=== PATIENT | female | born 1975 | race Caucasian/White ===

== ENCOUNTER 2020-01-22 21:00 | Observation (INO) | payer OTHER ==
[2020-01-22] MEDS ORDERED: Sodium Chloride 0.9% 10 ML Syringe FLUSH PRN (21:14)
[2020-01-22] MEDS ORDERED: Sodium Chloride 0.9% 1,000 ML IV STA (21:14)
[2020-01-22] MEDS ORDERED: Sodium Chloride 0.9% 10 ML SDV IV PRN (21:14)
[2020-01-22] MEDS ORDERED: Sodium Chloride 0.9% 2.5 ML Syringe FLUSH PRN (21:14)
[2020-01-22] MEDS ORDERED: Iopamidol 755 Mg/ML 100 ML Bottle IVPUSH ONE (21:43)
[2020-01-22 21:46] LABS: BLOOD UREA NITROGEN,BUN 14 mg/dL (7.0-18.0); CARBON DIOXIDE,CO2 26.1 mmol/L (21.0-32.0); CHLORIDE,CL 102 mmol/L (98-107); GLUCOSE RANDOM 90 mg/dL (74-106); POTASSIUM,K 3.7 mmol/L (3.5-5.1); SODIUM,NA 137 mmol/L (136-145)
[2020-01-22] MEDS ORDERED: Acetaminophen 325 MG Tab PO ONE (22:04)
--- NOTE | 2020-01-22 22:04 | EDM.PDOC ---
ED HPI GENERAL MEDICAL PROBLEM - General Chief Complaint: Neuro Symptoms/Deficits Stated Complaint: POSSIBLE STROKE Time Seen by Provider: 01/22/20 21:08 - History of Present Illness INITIAL COMMENTS - FREE TEXT/NARRATIVE: HISTORY AND PHYSICAL: History of present illness: This is a 45-year-old female with history significant for recent gastric sleeve placement approximately 1 year ago with an approximate 100 pound weight loss within the last year, history of anxiety disorder, family history of strokes in the past, presents the ER today secondary to acute onset of paresthesias to her left upper and lower extremity that occurred while she was driving. Patient reports her last known well was at 7:30 PM. Patient reports that she pulled over and noticed that her left arm and left leg felt numb. She drove home and her gave her an aspirin and they came here to the ED for further evaluation. Patient reports that she feels like her speech is somewhat abnormal, no double vision, no blurred vision, no weakness to her upper or lower extremities, normal gait, no dizziness or vertigo, no confusion. Patient denies any recent fevers, shakes, chills, nausea, vomiting, diarrhea, dysuria, frequency, urgency, chest pain, shortness of breath. Patient denies any increased anxiety or stressors in her life. Patient denies any abdominal discomfort or chest pain. Review of systems: As per history of present illness and below otherwise all systems reviewed and negative. Past medical history: As per history of present illness and as reviewed below otherwise noncontributory. Surgical history: As per history of present illness and as reviewed below otherwise noncontributory. Social history: No reported history of drug or alcohol abuse. Family history: As per history of present illness and as reviewed below otherwise noncontributory. Physical exam: HEENT: Atraumatic, normocephalic, pupils reactive, negative for conjunctival pallor or scleral icterus, mucous membranes moist, throat clear, neck supple, nontender, trachea midline. Lungs: Clear to auscultation, breath sounds equal bilaterally, chest nontender. Heart: S1S2, regular, negative for clicks, rubs, or JVD. Abdomen: Soft, nondistended, nontender. Negative for masses or hepatosplenomegaly. Negative for costovertebral tenderness. Pelvis: Stable nontender. Genitourinary: Deferred. Rectal: Deferred. Extremities: Atraumatic, negative for cords or calf pain. Neurovascular unremarkable. Neuro: Awake, alert, oriented. Cranial nerves II through XII unremarkable. Cerebellum unremarkable. Motor unremarkable throughout. Exam nonfocal except for paresthesias to her left upper and left lower extremities. 1a) Level of consciousness: 0=alert; 1=not alert but arousable by minor stimulation; 2=not alert: requires repeated stimulation to attend or is obtunded and requires strong or painful stimulation to make movements; 3=responds only with reflex motor or autonomic effects or totally unresponsive, flaccid and areflexic SCORE 0 1b) LOC questions ("what month is it?", "how old are you?"): 0=answers both correctly; 1=answers one correctly; 2=answers neither correctly SCORE 0 1c) LOC commands (command patient to "open and close your eyes. Senior Premium Auditor and release your hand.): 0=performs both correctly; 1=performs one correctly; 2=performs neither correctly SCORE 0 2) Best gaze ("follow my finger"): 0=normal; 1=partial gaze palsy; 2=forced deviation or total gaze paresis SCORE 0 3) Visual canales (use confrontation, finger counting, or visual threat. confront upper/lower quadrants of visual field): 0=no visual loss; 1=partial hemianopsia; 2=complete hemianopsia; 3=bilateral hemianopsia SCORE 0 4) Facial palsy (by words or pantomime, encourage patient to: "Show me your teeth. Raise your eyebrows. Close your eyes."): 0=normal symmetrical movement; 1=minor paralysis (flattened nasolabial fold, asymmetry on smiling); 2=partial paralysis (lower face); 3=complete paralysis SCORE 0 5) Arm motor (alternately position patient's arms. extend each arm with palms down [90 degrees if sitting, 45 degrees if supine] - test each arm in turn and start with nonparetic arm first): 0=no drift; 1=drift (arm falls before 10 se conds); 2=some effort vs. gravity; 3=no effort vs. gravity; 4=no movement; UN (untestable)=amputation or joint fusion SCORE 0 6) Leg motor (alternately position patient's legs. extend each leg [30 degrees, always while supine] - test nonparetic leg first): 0=no drift; 1=drift (leg falls before 5 seconds); 2=some effort vs. gravity; 3= no effort vs. gravity; 4=no movement; UN=amputation or joint fusion SCORE 0 7) Limb ataxia (ask patient [eyes open] to: "touch your finger to your nose. touch your heel to your andres"): 0=absent; 1=present in one limb; 2=present in two or more limbs; UN=amputation or joint fusion SCORE 0 8) Sensory (test as many body parts as possible [arms and not hands, legs, trunk, face] for sensation using pinprick or noxious stimuli [in the obtunded or aphasic patient]): 0=normal; 1=mild to moderate sensory loss; 2=severe to total sensory loss SCORE 1 9) Best language (using pictures and a sentence list, ask patient to "describe what you see in this picture. Name the items in this picture. Read these sentences"): 0=no aphasia, 1=mild to moderate aphasia; 2=severe aphasia; 3=mute, global aphasia SCORE 0 10) Dysarthria (using a simple word list, ask patient to: "read these words" or "repeat these words"): 0=normal articulation; 1=mild to moderate dysarthria; 2=severe dysarthria; UN=intubated or other physical barrier SCORE 0 11) Extinction and inattention (sufficient information to determine these scores may have been obtained during the prior testing): 0=no abnormality; 1=visual, tactile, auditory, spatial or personal inattention; 2=profound evangelina-inattention or extinction to more than one modality SCORE 0 TOTAL NIHSS Score:1 Diagnostics: CT head: No acute intracranial abnormalities. CTA of head and neck: No evidence of proximal arterial occlusion, high-grade stenosis, aneurysm, dissection or vascular malformation. CBC, CMP within normal limits. Urine drug screen positive for marijuana otherwise negative. Patient had report ed that she currently received a marijuana card 1 month ago. Alcohol level 0 Therapeutics: Patient received aspirin prior to arrival to the ED by . At this time, patient is not a candidate for thrombolytic therapy given her NIH score of 1 with paresthesias to her left upper and lower extremities. Patient has no neurological motor deficit. Patient has no cerebellar deficit. Patient has no motor deficit patient has no speech deficits. Assessment and plan: This is a 45-year-old female who presents ER today secondary to paresthesias and numbness to her left upper and left lower extremity that started at 7:30 PM. Patient reports her last known well was 7:30 PM. Patient reports that symptoms occurred while she was driving and she reports that the symptoms are persistent here in the ED. Patient's neurological exam reveals an NIH score of 1 secondary to paresthesias in her left upper and left lower extremities. Patient has normal motor strength in her upper and lower extremities. Patient is a normal cerebellar exam. Patient's cranial nerves II to XII intact. Patient speech is normal. Patient's mentation is normal. Case discussed with Dr. Ortega who agrees to assist with observation level of care of patient. At this time, patient would not be a candidate for thrombolytic therapy secondary to her NIH score of 1 and risk-benefit assessment. Critical Care: The high probability of sudden, clinically significant deterioration in the patient's condition required the highest level of my preparedness to intervene urgently. The services I provided to this patient were to treat and/or prevent clinically significant deterioration. Services included the following: chart data review, reviewing nursing notes and/or old charts, documentation time, center lead consultant collaboration regarding findings and treatment options, medication orders and management, direct patient care, vital sign assessments and ordering, interpreting and reviewing diagnostic studies/lab tests. Aggregate critical care time includes only time during which I was engaged inwork directly related to the patient's care, as described above, whether at the bedside or elsewhere in the Emergency Department. It did not include time spent performing other reported procedures or the services of residents, students, nurses or physician assistants. Critical Care Time: 35 minutes Definitive disposition and diagnosis as appropriate pending reevaluation and review of above. - Related Data Allergies Allergy/AdvReac Type Severity Reaction Status Date / Time hydromorphone [From Dilaudid] Allergy Other Verified 01/22/20 21:21 prochlorperazine Allergy Other Verified 01/22/20 21:21 [From Compazine] promethazine [From Phenergan] Allergy Other Verified 01/22/20 21:23 Home Meds: Home Meds Levothyroxine 150 mcg PO DAILY 01/22/20 [History] PARoxetine [Paxil] 10 mg PO DAILY 01/22/20 [History] clonazePAM [Klonopin] 2 mg PO DAILY 01/22/20 [History] Past Medical History Other Gastrointestinal History: gastric sleeve Genitourinary History: Reports: Renal Calculus Other INDUSTRIAL LABORER History: Psychiatric History: Reports: Anxiety, Panic Attack - Past Surgical History GI Surgical History: Reports: Cholecystectomy Social & Family History - Family History Family Medical History: Noncontributory - Caffeine Use Caffeine Use: Reports: None - Recreational Drug Use Recreational Drug Type: Reports: Marijuana/Hashish ED ROS GENERAL - Review of Systems Review Of Systems: See Below ED EXAM, GENERAL - Physical Exam Exam: See Below Course - Vital Signs Last Recorded V/S: Last Vital Signs Temp 97.1 F 01/22/20 21:05 Pulse 71 01/22/20 21:05 Resp 18 01/22/20 21:05 BP 186/110 H 01/22/20 21:05 Pulse Ox 96 01/22/20 21:05 - Orders/Labs/Meds Orders: Active Orders 24 hr Category Date Time Status Assess Neurological Status [RC] ASDIRECTED Care 01/22/20 21:14 Active Cardiac Monitoring [RC] . DIRECTED Care 01/22/20 21:14 Active EKG Documentation Completion [RC] STAT Care 01/22/20 21:14 Active Height and Weight [RC] UPON Care 01/22/20 21:14 Active Initiate Acute Stroke Protocol [RC] STAT Care 01/22/20 21:14 Active NIH Stroke Scale [RC] ASDIRECTED Care 01/22/20 21:14 Active Nursing Bedside Swallow Screen [RC] ASDIRECTED Care 01/22/20 21:14 Active Oxygen Therapy [RC] ASDIRECTED Care 01/22/20 21:14 Active Stroke Education, General [RC] Click to Edit Care 01/22/20 21:14 Active Up With Assistance [RC] ASDIRECTED Care 01/22/20 21:14 Active Vital Signs [RC] Q15M Care 01/22/20 21:14 Active Chest 1V Frontal [CR] Stat Exams 01/22/20 21:15 Taken Sodium Chloride 0.9% [Normal Saline] Med 01/22/20 21:14 Active 10 ml IV ASDIRECTED PRN Sodium Chloride 0.9% [Normal Saline] 1,000 ml Med 01/22/20 21:14 Active IV NOW Sodium Chloride 0.9% [Saline Flush] Med 01/22/20 21:14 Active 10 ml FLUSH ASDIRECTED PRN Sodium Chloride 0.9% [Saline Flush] Med 01/22/20 21:14 Active 2.5 ml FLUSH ASDIRECTED PRN Peripheral IV Insertion Adult [OM.PC] Stat Ot 01/22/20 21:14 Ordered Peripheral IV Insertion Adult [OM.PC] Stat Ot 01/22/20 21:14 Ordered Medication Orders Sodium Chloride (Normal Saline) 1,000 mls @ 125 mls/hr IV NOW STA Stop: 01/23/20 05:13 Last Admin: 01/22/20 22:07 Dose: 125 mls/hr Documented by: MORALES Sodium Chloride (Saline Flush) 10 ml FLUSH ASDIRECTED PRN PRN Reason: Keep Vein Open Sodium Chloride (Saline Flush) 2.5 ml FLUSH ASDIRECTED PRN PRN Reason: Keep Vein Open Sodium Chloride (Normal Saline) 10 ml IV ASDIRECTED PRN PRN Reason: IV Use Labs: Laboratory Tests 01/22/20 01/22/20 01/22/20 Range/Units 21:10 21:10 21:10 WBC 11.25 H (4.0-11.0) K/uL RBC 4.09 L (4.30-5.90) M/uL Hgb 13.0 (12.0-16.0) g/dL Hct 38.6 (36.0-46.0) % MCV 94.4 (80.0-98.0) fL MCH 31.8 (27.0-32.0) pg MCHC 33.7 (31.0-37.0) g/dL RDW Std Deviation 49.7 (28.0-62.0) fl RDW Coeff of Rita 14 (11.0-15.0) % Plt Count 359 (150-400) K/uL MPV 10.00 (7.40-12.00) fL Neut % (Auto) 51.2 (48.0-80.0) % Lymph % (Auto) 36.2 (16.0-40.0) % [place] % (Auto) 10.4 (0.0-15.0) % Eos % (Auto) 2.0 (0.0-7.0) % Baso % (Auto) 0.2 (0.0-1.5) % Neut # (Auto) 5.8 H (1.4-5.7) K/uL Lymph # (Auto) 4.1 H (0.6-2.4) K/uL [place] # (Auto) 1.2 H (0.0-0.8) K/uL Eos # (Auto) 0.2 (0.0-0.7) K/uL Baso # (Auto) 0.0 (0.0-0.1) K/uL Nucleated RBC % 0.0 /100WBC Nucleated RBCs # 0 K/uL INR 1.08 APTT 27.6 (18.6-31.3) SEC Sodium 137 (136-145) mmol/L Potassium 3.7 (3.5-5.1) mmol/L Chloride 102 (98-107) mmol/L Carbon Dioxide 26.1 (21.0-32.0) mmol/L BUN 14 (7.0-18.0) mg/dL Creatinine 0.7 (0.6-1.0) mg/dL Est Cr Clr Drug Dosing TNP Estimated GFR (MDRD) > 60.0 ml/min Glucose 90 (74-106) mg/dL Calcium 9.4 (8.5-10.1) mg/dL Total Bilirubin 0.2 (0.2-1.0) mg/dL AST 16 (15-37) IU/L ALT 29 (14-63) IU/L Alkaline Phosphatase 93 (46-116) U/L Troponin I < 0.050 (0.000-0.056) ng/mL Total Protein 8.2 (6.4-8.2) g/dL Albumin 3.6 (3.4-5.0) g/dL Globulin 4.6 H (2.6-4.0) g/dL Albumin/Globulin Ratio 0.8 L (0.9-1.6) TSH 3rd Generation 0.42 (0.36-3.74) uIU/mL Urine Color Urine Appearance Urine pH (5.0-8.0) Ur Specific [place] (1.001-1.035) Urine Protein (NEGATIVE) mg/dL Urine Glucose (UA) (NEGATIVE) mg/dL Urine Ketones (NEGATIVE) mg/dL Urine Occult Blood (NEGATIVE) Urine Nitrite (NEGATIVE) Urine Bilirubin (NEGATIVE) Urine Urobilinogen (<2.0) EU/dL Ur Leukocyte Esterase (NEGATIVE) Urine RBC (0-2/HPF) Urine WBC (0-5/HPF) Ur Epithelial Cells (NONE-FEW) Urine Bacteria (NEGATIVE) Urine Opiates Screen (NEGATIVE) Ur Oxycodone Screen (NEGATIVE) Urine Methadone Screen (NEGATIVE) Ur Barbiturates Screen (NEGATIVE) Ur Phencyclidine Scrn (NEGATIVE) Ur Amphetamine Screen (NEGATIVE) U Methamphetamines Scrn (NEGATIVE) U Benzodiazepines Scrn (NEGATIVE) U Cocaine Metab Screen (NEGATIVE) U Marijuana (THC) Screen (NEGATIVE) Ethyl Alcohol < 3.0 mg/dL 01/22/20 01/22/20 Range/Units 21:40 21:40 WBC (4.0-11.0) K/uL RBC (4.30-5.90) M/uL Hgb (12.0-16.0) g/dL Hct (36.0-46.0) % MCV (80.0-98.0) fL MCH (27.0-32.0) pg MCHC (31.0-37.0) g/dL RDW Std Deviation (28.0-62.0) fl RDW Coeff of Rita (11.0-15.0) % Plt Count (150-400) K/uL MPV (7.40-12.00) fL Neut % (Auto) (48.0-80.0) % Lymph % (Auto) (16.0-40.0) % [place] % (Auto) (0.0-15.0) % Eos % (Auto) (0.0-7.0) % Baso % (Auto) (0.0-1.5) % Neut # (Auto) (1.4-5.7) K/uL Lymph # (Auto) (0.6-2.4) K/uL [place] # (Auto) (0.0-0.8) K/uL Eos # (Auto) (0.0-0.7) K/uL Baso # (Auto) (0.0-0.1) K/uL Nucleated RBC % /100WBC Nucleated RBCs # K/uL INR APTT (18.6-31.3) SEC Sodium (136-145) mmol/L Potassium (3.5-5.1) mmol/L Chloride (98-107) mmol/L Carbon Dioxide (21.0-32.0) mmol/L BUN (7.0-18.0) mg/dL Creatinine (0.6-1.0) mg/dL Est Cr Clr Drug Dosing Estimated GFR (MDRD) ml/min Glucose (74-106) mg/dL Calcium (8.5-10.1) mg/dL Total Bilirubin (0.2-1.0) mg/dL AST (15-37) IU/L ALT (14-63) IU/L Alkaline Phosphatase (46-116) U/L Troponin I (0.000-0.056) ng/mL Total Protein (6.4-8.2) g/dL Albumin (3.4-5.0) g/dL Globulin (2.6-4.0) g/dL Albumin/Globulin Ratio (0.9-1.6) TSH 3rd Generation (0.36-3.74) uIU/mL Urine Color YELLOW Urine Appearance CLEAR Urine pH 6.0 (5.0-8.0) Ur Specific [place] 1.010 (1.001-1.035) Urine Protein NEGATIVE (NEGATIVE) mg/dL Urine Glucose (UA) NEGATIVE (NEGATIVE) mg/dL Urine Ketones NEGATIVE (NEGATIVE) mg/dL Urine Occult Blood SMALL H (NEGATIVE) Urine Nitrite NEGATIVE (NEGATIVE) Urine Bilirubin NEGATIVE (NEGATIVE) Urine Urobilinogen 0.2 (<2.0) EU/dL Ur Leukocyte Esterase NEGATIVE (NEGATIVE) Urine RBC 0-2 (0-2/HPF) Urine WBC 0-1 (0-5/HPF) Ur Epithelial Cells RARE (NONE-FEW) Urine Bacteria RARE (NEGATIVE) Urine Opiates Screen NEGATIVE (NEGATIVE) Ur Oxycodone Screen NEGATIVE (NEGATIVE) Urine Methadone Screen NEGATIVE (NEGATIVE) Ur Barbiturates Screen NEGATIVE (NEGATIVE) Ur Phencyclidine Scrn NEGATIVE (NEGATIVE) Ur Amphetamine Screen NEGATIVE (NEGATIVE) U Methamphetamines Scrn NEGATIVE (NEGATIVE) U Benzodiazepines Scrn NEGATIVE (NEGATIVE) U Cocaine Metab Screen NEGATIVE (NEGATIVE) U Marijuana (THC) Screen POSITIVE (NEGATIVE) Ethyl Alcohol mg/dL Meds: Medications Generic Name Dose Route Start Last Admin Trade Name Freq PRN Reason Stop Dose Admin Sodium Chloride 1,000 mls @ 125 mls/hr 01/22/20 21:14 01/22/20 22:07 Normal Saline IV 01/23/20 05:13 125 mls/hr NOW STA Administration Sodium Chloride 10 ml 01/22/20 21:14 Saline Flush FLUSH ASDIRECTED PRN Keep Vein Open Sodium Chloride 2.5 ml 01/22/20 21:14 Saline Flush FLUSH ASDIRECTED PRN Keep Vein Open Sodium Chloride 10 ml 01/22/20 21:14 Normal Saline IV ASDIRECTED PRN IV Use Discontinued Medications Generic Name Dose Route Start Last Admin Trade Name Frejoel PRN Reason Stop Dose Admin Acetaminophen 650 mg 01/22/20 22:04 01/22/20 22:09 Tylenol PO 01/22/20 22:05 650 mg NOW ONE Administration Iopamidol 100 ml 01/22/20 21:43 01/22/20 21:43 [id number] (76%) IVPUSH 01/22/20 21:44 100 ml ONETIME ONE Administration Departure - Departure Time of Disposition: 22:33 Disposition: Refer to Observation Condition: Good Clinical Impression: Stroke, Hypertension, Anxiety disorder, Paresthesia of left upper and lower extremity - Discharge Information Referrals: Nuvia Pierce NP [Primary Care Provider] - Forms: ED Department Discharge Sepsis Event Note (ED) - Evaluation Sepsis Screening Result: No Definite Risk - Focused Exam Vital Signs: Vital Signs Temp Pulse Resp BP Pulse Ox 01/22/20 21:05 97.1 F 71 18 186/110 H 96 - My Orders Last 24 Hours: My Active Orders 01/22/20 21:14 Assess Neurological Status [RC] ASDIRECTED Cardiac Monitoring [RC] . DIRECTED EKG Documentation Completion [RC] STAT Height and Weight [RC] UPON Initiate Acute Stroke Protocol [RC] STAT NIH Stroke Scale [RC] ASDIRECTED Nursing Bedside Swallow Screen [RC] ASDIRECTED Oxygen Therapy [RC] ASDIRECTED Stroke Education, General [RC] Click to Edit Up With Assistance [RC] ASDIRECTED Vital Signs [RC] Q15M Sodium Chloride 0.9% [Normal Saline] 10 ml IV ASDIRECTED PRN Sodium Chloride 0.9% [Normal Saline] 1,000 ml IV NOW Sodium Chloride 0.9% [Saline Flush] 10 ml FLUSH ASDIRECTED PRN Sodium Chloride 0.9% [Saline Flush] 2.5 ml FLUSH ASDIRECTED PRN Peripheral IV Insertion Adult [OM.PC] Stat Peripheral IV Insertion Adult [OM.PC] Stat 01/22/20 21:15 Chest 1V Frontal [CR] Stat - Assessment/Plan Last 24 Hours: My Active Orders 01/22/20 21:14 Assess Neurological Status [RC] ASDIRECTED Cardiac Monitoring [RC] . DIRECTED EKG Documentation Completion [RC] STAT Height and Weight [RC] UPON Initiate Acute Stroke Protocol [RC] STAT NIH Stroke Scale [RC] ASDIRECTED Nursing Bedside Swallow Screen [RC] ASDIRECTED Oxygen Therapy [RC] ASDIRECTED Stroke Education, General [RC] Click to Edit Up With Assistance [RC] ASDIRECTED Vital Signs [RC] Q15M Sodium Chloride 0.9% [Normal Saline] 10 ml IV ASDIRECTED PRN Sodium Chloride 0.9% [Normal Saline] 1,000 ml IV NOW Sodium Chloride 0.9% [Saline Flush] 10 ml FLUSH ASDIRECTED PRN Sodium Chloride 0.9% [Saline Flush] 2.5 ml FLUSH ASDIRECTED PRN Peripheral IV Insertion Adult [OM.PC] Stat Peripheral IV Insertion Adult [OM.PC] Stat 01/22/20 21:15 Chest 1V Frontal [CR] Stat
--- NOTE | 2020-01-22 22:16 | CT ---
Indication: Stroke alert Technique: CT of the head without contrast. Coronal and sagittal reformats. Bone and soft tissue windows. Comparison: No prior studies available for comparison at this institution. Findings: No acute intracranial hemorrhage or extra-axial collection. No evidence of acute cortical infarction. No mass effect or midline shift. Normal cerebral volume. The ventricles are normal in size, shape and contour. There is normal sanchez and white matter differentiation. The orbital contents are normal. No calvarial fractures. No lytic or sclerotic osseous lesions within the calvarium or skull base. Scalp and other imaged soft tissue structures are normal. Mastoid air cells are clear. Paranasal sinuses are well aerated. Impression: No acute intracranial abnormality. Please note that all CT scans at this facility use dose modulation, iterative reconstruction, and/or weight-based dosing when appropriate to reduce radiation dose to as low as reasonably achievable. Dictated by Keven Pride MD @ Jan 22 2020 10:11PM Signed by Dr. Keven Pride @ Jan 22 2020 10:13PM
--- NOTE | 2020-01-22 22:18 | CT ---
INDICATION: Acute stroke. TECHNIQUE: After standard noncontrast head CT, high resolution axial CT images acquired through the head and neck following rapid intravenous administration of iodinated contrast. Multiplanar MIPS of cranial and cervical vasculature performed. COMPARISON: None. FINDINGS: Noncontrast head CT: There is no intracranial hemorrhage or fluid collection. The kendrick-white matter differentiation is maintained. The ventricles are of normal morphology. The basal cisterns are clear. CTA head: There is normal filling of the intracranial vasculature; i.e. there is no large vessel occlusion or intracranial stenosis. There is no cerebral aneurysm or evidence for vascular malformation. CTA neck: Both carotid and vertebral arteries have a normal course and caliber. There is no stenosis or evidence for dissection. The soft tissues of the neck are within normal limits. The cervical spine is in normal alignment. The lung apices are clear. IMPRESSION: Unremarkable CT head, CTA head and neck. Evelio Lima MD [employer] [facility] Please note that all CT scans at this facility use dose modulation, iterative reconstruction, and/or weight-based dosing when appropriate to reduce radiation dose to as low as reasonably achievable. Dictated by Evelio Lima MD @ Jan 22 2020 10:49PM Signed by Dr. Evelio Lima @ Jan 22 2020 10:49PM
--- NOTE | 2020-01-22 22:43 | CR ---
CHEST 1 VIEW AP INDICATION: Stroke alert patient. IMPRESSION: Normal heart size and vascular pattern. Lungs are clear. No pneumothorax or pleural effusion. ECG Monitor leads projected over the patient. Dictated by Joselo Quintana MD @ Jan 22 2020 10:42PM Signed by Dr. Joselo Quintana @ Jan 22 2020 10:42PM
[2020-01-22] MEDS ORDERED: Albuterol/Ipratropium 3.0-0.5 MG/3 ML Neb Soln NEB PRN (23:41)
[2020-01-22] MEDS ORDERED: Ondansetron 4 MG/2 ML SDV IVPUSH PRN (23:41)
[2020-01-22] MEDS ORDERED: Acetaminophen 325 MG Tab PO PRN (23:41)
[2020-01-22] MEDS ORDERED: Labetalol 100 MG/20 ML MDV IVPUSH PRN (23:50)
[2020-01-23 00:35] LABS: HEMOGLOBIN A1C 5.3 % (4.5-6.2)
[2020-01-23 06:42] LABS: BLOOD UREA NITROGEN,BUN 12 mg/dL (7.0-18.0); CARBON DIOXIDE,CO2 24.8 mmol/L (21.0-32.0); CHLORIDE,CL 108 mmol/L (98-107); GLUCOSE RANDOM 83 mg/dL (74-106); POTASSIUM,K 3.8 mmol/L (3.5-5.1); SODIUM,NA 140 mmol/L (136-145)
[2020-01-23] MEDS: Levothyroxine 150 MCG Tab PO SCH (08:40)
[2020-01-23] MEDS: Aspirin 81 MG Tab.Chew PO SCH (08:41)
[2020-01-23] MEDS: atorvaSTATin 20 MG Tab PO SCH ×2 (08:41→20:45)
[2020-01-23] MEDS ORDERED: CLONAZEPAM 2 MG PO SCH (09:00)
[2020-01-23] MEDS ORDERED: CLONAZEPAM 2 MG PO PRN (10:15)
--- NOTE | 2020-01-23 13:19 | PCM.HP.2 ---
<Salome Heath - Last Filed: 01/23/20 13:21> H&P History of Present Illness - General Date of Service: 01/23/20 Admit Problem/Dx: Admission Diagnosis/Problem Admission Diagnosis/Problem Stroke-like symptoms Source of Information: Patient History Limitations: Reports: No Limitations - History of Present Illness Initial Comments - Free Text/Narative: Pt is a 45-year-old female with a h/o recent gastric sleeve placement approximately 1 year ago with an approximate 100 pound weight loss within the last year. As well as a h/o significant for anxiety disorder, family history of strokes. Patient presented with an acute onset of paresthesias to her left upper and lower extremity that occurred while she was driving yesterday. Symptoms began last night while driving at around 7:30 pm. At that time she pulled over and noticed that her left arm and left leg felt numb. She drove home and her gave her an aspirin and they came here to the ED for further evaluation. Patient reported that she feels like her speech is somewhat abnormal but fan melton else thinks she is sounding like her usual self. This morning she states that he symtpoms have improved but she still feels a residual heaviness on the left side. Otherwise denies any visual changes, weakness to her upper or lower extremities, changes in gait, no dizziness or vertigo, and no confusion. Furthermore, patient denies any recent fevers, shakes, chills, nausea, vomiting, diarrhea, dysuria, frequency, urgency, chest pain, shortness of breath. Patient denies any increased anxiety or stressors in her life. Patient denies any abdominal discomfort or chest pain. There were no acute events overnight. This morning patient was seen and examined at beside, resting comfortably in the hospital bed . States that she does not have any new symptoms, that her numbness and tingling have improved but her left side still has a residual heaviness and is not feeling comfortable for discharge yet. Onset of Symptoms: Reports: Today Improves with: Reports: None Worsens with: Reports: None Context: Denies: Sick Contact, Travel Associated Symptoms: Reports: No Other Symptoms Headache Pain Score (Numeric/FACES): 2 - Related Data Allergies/Adverse Reactions: Allergies Allergy/AdvReac Type Severity Reaction Status Date / Time hydromorphone [From Dilaudid] Allergy Other Verified 01/23/20 01:54 CDT prochlorperazine Allergy Other Verified 01/23/20 01:54 CDT [From Compazine] promethazine [From Phenergan] Allergy Other Verified 01/23/20 01:54 CDT Home Medications: Home Meds Levothyroxine 150 mcg PO DAILY 01/22/20 [History] PARoxetine [Paxil] 40 mg PO DAILY 01/22/20 [History] clonazePAM [Klonopin] 2 mg PO BID PRN 01/22/20 [History] Aspirin 81 mg PO DAILY 30 Days #30 tab.chew 01/24/20 [Rx] atorvaSTATin [Lipitor] 20 mg PO BEDTIME 30 Days #30 tablet 01/24/20 [Rx] Past Medical History Other Gastrointestinal History: gastric sleeve Genitourinary History: Reports: Renal Calculus Other OB/BYN History: Psychiatric History: Reports: Anxiety, Panic Attack - Past Surgical History GI Surgical History: Reports: Cholecystectomy Social & Family History - Family History Family Medical History: Noncontributory - Tobacco Use Tobacco Use Status *Q: Never Tobacco User - Caffeine Use Caffeine Use: Reports: Coffee - Recreational Drug Use Recreational Drug Use: No Recreational Drug Type: Reports: Marijuana/Hashish H&P Review of Systems - Review of Systems: Review Of Systems: See Below General: Reports: No Symptoms HEENT: Reports: No Symptoms Pulmonary: Reports: No Symptoms Cardiovascular: Reports: No Symptoms Gastrointestinal: Reports: No Symptoms Genitourinary: Reports: No Symptoms Musculoskeletal: Reports: No Symptoms Skin: Reports: No Symptoms Psychiatric: Reports: No Symptoms Neurological: Reports: Numbness, Paresthesia (left side of body), Tingling Exam - Exam Exam: See Below - Vital Signs Vital Signs: Last Vital Signs Temp 98.1 F 01/23/20 12:00 Pulse 64 01/23/20 12:00 Resp 15 01/23/20 12:00 BP 122/74 01/23/20 12:00 Pulse Ox 97 01/23/20 12:00 Weight: 82.962 kg - Exam Quality Assessment: DVT Prophylaxis General: Alert, Oriented, Cooperative HEENT: Conjunctiva Clear, EOMI, Hearing Intact, Mucosa Moist & [place], Pupils Equal, PERRLA Neck: Supple, Trachea Midline, Full Range of Motion. No: +2 Carotid Pulse wo Bruit, Lymphadenopathy, JVD, Thyromegaly Lungs: Clear to Auscultation, Normal Respiratory Effort Cardiovascular: Regular Rate, Regular Rhythm, Normal S1, Normal S2 GI/Abdominal Exam: Normal Bowel Sounds, Soft, Non-Tender Extremities: Normal Inspection, Normal Range of Motion, No Pedal Edema, Normal Capillary Refill Peripheral Pulses: 2+: Dorsalis Pedis (L), Dorsalis Pedis (R) Skin: Warm, Dry Neurological: Cranial Nerves Intact, Reflexes Equal Bilateral Neuro Extensive - Mental Status: Alert, Oriented x3, Normal Mood/Affect, Normal Cognition, Memory Intact Neuro Extensive - Motor, Sensory, Reflexes: CN II-XII Intact, Normal Gait, Normal Reflexes. No: Dysarthria, Receptive Aphasia, Expressive Aphasia, Facial palsy (L), Facial Palsy (R), Facial Palsy w Forehead, Facial Palsy wo Forehead, Hemeplagia (R), Hemeplagia (L), Pronator Drift (R), Pronator Drift (L), Abnormal Sensation, Abnormal Light Touch, Abnormal Motor, Abnormal Pin Prick, Babinski, Tremor, Motor/Sensory Deficits DTR: 2+: Bicep (L), Bicep (R), Tricep (L), Tricep (R), Patella (L), Patella (R), Achilles (L), Achilles (R) Psychiatric: Alert, Normal Affect, Normal Mood - Patient Data Lab Results Last 24 hrs: Laboratory Results - last 24 hr 01/22/20 01/22/20 01/22/20 Range/Units 21:10 21:10 21:10 WBC 11.25 H (4.0-11.0) K/uL RBC 4.09 L (4.30-5.90) M/uL Hgb 13.0 (12.0-16.0) g/dL Hct 38.6 (36.0-46.0) % MCV 94.4 (80.0-98.0) fL MCH 31.8 (27.0-32.0) pg MCHC 33.7 (31.0-37.0) g/dL RDW Std Deviation 49.7 (28.0-62.0) fl RDW Coeff of Rita 14 (11.0-15.0) % Plt Count 359 (150-400) K/uL MPV 10.00 (7.40-12.00) fL Neut % (Auto) 51.2 (48.0-80.0) % Lymph % (Auto) 36.2 (16.0-40.0) % [place] % (Auto) 10.4 (0.0-15.0) % Eos % (Auto) 2.0 (0.0-7.0) % Baso % (Auto) 0.2 (0.0-1.5) % Neut # (Auto) 5.8 H (1.4-5.7) K/uL Lymph # (Auto) 4.1 H (0.6-2.4) K/uL [place] # (Auto) 1.2 H (0.0-0.8) K/uL Eos # (Auto) 0.2 (0.0-0.7) K/uL Baso # (Auto) 0.0 (0.0-0.1) K/uL Nucleated RBC % 0.0 /100WBC Nucleated RBCs # 0 K/uL INR 1.08 APTT 27.6 (18.6-31.3) SEC Sodium 137 (136-145) mmol/L Potassium 3.7 (3.5-5.1) mmol/L Chloride 102 (98-107) mmol/L Carbon Dioxide 26.1 (21.0-32.0) mmol/L BUN 14 (7.0-18.0) mg/dL Creatinine 0.7 (0.6-1.0) mg/dL Est Cr Clr Drug Dosing TNP Estimated GFR (MDRD) > 60.0 ml/min Glucose 90 (74-106) mg/dL Hemoglobin A1c (4.5-6.2) % Calcium 9.4 (8.5-10.1) mg/dL Phosphorus (2.6-4.7) mg/dL Magnesium (1.8-2.4) mg/dL Total Bilirubin 0.2 (0.2-1.0) mg/dL AST 16 (15-37) IU/L ALT 29 (14-63) IU/L Alkaline Phosphatase 93 (46-116) U/L Troponin I < 0.050 (0.000-0.056) ng/mL Total Protein 8.2 (6.4-8.2) g/dL Albumin 3.6 (3.4-5.0) g/dL Globulin 4.6 H (2.6-4.0) g/dL Albumin/Globulin Ratio 0.8 L (0.9-1.6) Triglycerides (0-200) mg/dL Cholesterol (50-200) mg/dL LDL Cholesterol, Calc (60-180) mg/dL VLDL Cholesterol (5-55) mg/dL HDL Cholesterol (40-60) mg/dL Cholesterol/HDL Ratio (3.3-6.0) TSH 3rd Generation 0.42 (0.36-3.74) uIU/mL Urine Color Urine Appearance Urine pH (5.0-8.0) Ur Specific [place] (1.001-1.035) Urine Protein (NEGATIVE) mg/dL Urine Glucose (UA) (NEGATIVE) mg/dL Urine Ketones (NEGATIVE) mg/dL Urine Occult Blood (NEGATIVE) Urine Nitrite (NEGATIVE) Urine Bilirubin (NEGATIVE) Urine Urobilinogen (<2.0) EU/dL Ur Leukocyte Esterase (NEGATIVE) Urine RBC (0-2/HPF) Urine WBC (0-5/HPF) Ur Epithelial Cells (NONE-FEW) Urine Bacteria (NEGATIVE) Urine Opiates Screen (NEGATIVE) Ur Oxycodone Screen (NEGATIVE) Urine Methadone Screen (NEGATIVE) Ur Barbiturates Screen (NEGATIVE) Ur Phencyclidine Scrn (NEGATIVE) Ur Amphetamine Screen (NEGATIVE) U Methamphetamines Scrn (NEGATIVE) U Benzodiazepines Scrn (NEGATIVE) U Cocaine Metab Screen (NEGATIVE) U Marijuana (THC) Screen (NEGATIVE) Ethyl Alcohol < 3.0 mg/dL SARS-CoV-2 RNA (DAVID) (NEGATIVE) 01/22/20 01/22/20 01/22/20 Range/Units 21:10 21:10 21:40 WBC (4.0-11.0) K/uL RBC (4.30-5.90) M/uL Hgb (12.0-16.0) g/dL Hct (36.0-46.0) % MCV (80.0-98.0) fL MCH (27.0-32.0) pg MCHC (31.0-37.0) g/dL RDW Std Deviation (28.0-62.0) fl RDW Coeff of Rita (11.0-15.0) % Plt Count (150-400) K/uL MPV (7.40-12.00) fL Neut % (Auto) (48.0-80.0) % Lymph % (Auto) (16.0-40.0) % [place] % (Auto) (0.0-15.0) % Eos % (Auto) (0.0-7.0) % Baso % (Auto) (0.0-1.5) % Neut # (Auto) (1.4-5.7) K/uL Lymph # (Auto) (0.6-2.4) K/uL [place] # (Auto) (0.0-0.8) K/uL Eos # (Auto) (0.0-0.7) K/uL Baso # (Auto) (0.0-0.1) K/uL Nucleated RBC % /100WBC Nucleated RBCs # K/uL INR APTT (18.6-31.3) SEC Sodium (136-145) mmol/L Potassium (3.5-5.1) mmol/L Chloride (98-107) mmol/L Carbon Dioxide (21.0-32.0) mmol/L BUN (7.0-18.0) mg/dL Creatinine (0.6-1.0) mg/dL Est Cr Clr Drug Dosing Estimated GFR (MDRD) ml/min Glucose (74-106) mg/dL Hemoglobin A1c 5.3 (4.5-6.2) % Calcium (8.5-10.1) mg/dL Phosphorus (2.6-4.7) mg/dL Magnesium 2.0 (1.8-2.4) mg/dL Total Bilirubin (0.2-1.0) mg/dL AST (15-37) IU/L ALT (14-63) IU/L Alkaline Phosphatase (46-116) U/L Troponin I (0.000-0.056) ng/mL Total Protein (6.4-8.2) g/dL Albumin (3.4-5.0) g/dL Globulin (2.6-4.0) g/dL Albumin/Globulin Ratio (0.9-1.6) Triglycerides (0-200) mg/dL Cholesterol (50-200) mg/dL LDL Cholesterol, Calc (60-180) mg/dL VLDL Cholesterol (5-55) mg/dL HDL Cholesterol (40-60) mg/dL Cholesterol/HDL Ratio (3.3-6.0) TSH 3rd Generation (0.36-3.74) uIU/mL Urine Color YELLOW Urine Appearance CLEAR Urine pH 6.0 (5.0-8.0) Ur Specific [place] 1.010 (1.001-1.035) Urine Protein NEGATIVE (NEGATIVE) mg/dL Urine Glucose (UA) NEGATIVE (NEGATIVE) mg/dL Urine Ketones NEGATIVE (NEGATIVE) mg/dL Urine Occult Blood SMALL H (NEGATIVE) Urine Nitrite NEGATIVE (NEGATIVE) Urine Bilirubin NEGATIVE (NEGATIVE) Urine Urobilinogen 0.2 (<2.0) EU/dL Ur Leukocyte Esterase NEGATIVE (NEGATIVE) Urine RBC 0-2 (0-2/HPF) Urine WBC 0-1 (0-5/HPF) Ur Epithelial Cells RARE (NONE-FEW) Urine Bacteria RARE (NEGATIVE) Urine Opiates Screen (NEGATIVE) Ur Oxycodone Screen (NEGATIVE) Urine Methadone Screen (NEGATIVE) Ur Barbiturates Screen (NEGATIVE) Ur Phencyclidine Scrn (NEGATIVE) Ur Amphetamine Screen (NEGATIVE) U Methamphetamines Scrn (NEGATIVE) U Benzodiazepines Scrn (NEGATIVE) U Cocaine Metab Screen (NEGATIVE) U Marijuana (THC) Screen (NEGATIVE) Ethyl Alcohol mg/dL SARS-CoV-2 RNA (DAVID) (NEGATIVE) 01/22/20 01/22/20 01/23/20 Range/Units 21:40 22:45 05:35 WBC 8.27 (4.0-11.0) K/uL RBC 3.78 L (4.30-5.90) M/uL Hgb 11.5 L (12.0-16.0) g/dL Hct 36.0 (36.0-46.0) % MCV 95.2 (80.0-98.0) fL MCH 30.4 (27.0-32.0) pg MCHC 31.9 (31.0-37.0) g/dL RDW Std Deviation 51.2 (28.0-62.0) fl RDW Coeff of Rita 15 (11.0-15.0) % Plt Count 336 (150-400) K/uL MPV 10.50 (7.40-12.00) fL Neut % (Auto) 48.1 (48.0-80.0) % Lymph % (Auto) 36.4 (16.0-40.0) % [place] % (Auto) 11.9 (0.0-15.0) % Eos % (Auto) 3.4 (0.0-7.0) % Baso % (Auto) 0.2 (0.0-1.5) % Neut # (Auto) 4.0 (1.4-5.7) K/uL Lymph # (Auto) 3.0 H (0.6-2.4) K/uL [place] # (Auto) 1.0 H (0.0-0.8) K/uL Eos # (Auto) 0.3 (0.0-0.7) K/uL Baso # (Auto) 0.0 (0.0-0.1) K/uL Nucleated RBC % 0.0 /100WBC Nucleated RBCs # 0 K/uL INR APTT (18.6-31.3) SEC Sodium (136-145) mmol/L Potassium (3.5-5.1) mmol/L Chloride (98-107) mmol/L Carbon Dioxide (21.0-32.0) mmol/L BUN (7.0-18.0) mg/dL Creatinine (0.6-1.0) mg/dL Est Cr Clr Drug Dosing Estimated GFR (MDRD) ml/min Glucose (74-106) mg/dL Hemoglobin A1c (4.5-6.2) % Calcium (8.5-10.1) mg/dL Phosphorus (2.6-4.7) mg/dL Magnesium (1.8-2.4) mg/dL Total Bilirubin (0.2-1.0) mg/dL AST (15-37) IU/L ALT (14-63) IU/L Alkaline Phosphatase (46-116) U/L Troponin I (0.000-0.056) ng/mL Total Protein (6.4-8.2) g/dL Albumin (3.4-5.0) g/dL Globulin (2.6-4.0) g/dL Albumin/Globulin Ratio (0.9-1.6) Triglycerides (0-200) mg/dL Cholesterol (50-200) mg/dL LDL Cholesterol, Calc (60-180) mg/dL VLDL Cholesterol (5-55) mg/dL HDL Cholesterol (40-60) mg/dL Cholesterol/HDL Ratio (3.3-6.0) TSH 3rd Generation (0.36-3.74) uIU/mL Urine Color Urine Appearance Urine pH (5.0-8.0) Ur Specific [place] (1.001-1.035) Urine Protein (NEGATIVE) mg/dL Urine Glucose (UA) (NEGATIVE) mg/dL Urine Ketones (NEGATIVE) mg/dL Urine Occult Blood (NEGATIVE) Urine Nitrite (NEGATIVE) Urine Bilirubin (NEGATIVE) Urine Urobilinogen (<2.0) EU/dL Ur Leukocyte Esterase (NEGATIVE) Urine RBC (0-2/HPF) Urine WBC (0-5/HPF) Ur Epithelial Cells (NONE-FEW) Urine Bacteria (NEGATIVE) Urine Opiates Screen NEGATIVE (NEGATIVE) Ur Oxycodone Screen NEGATIVE (NEGATIVE) Urine Methadone Screen NEGATIVE (NEGATIVE) Ur Barbiturates Screen NEGATIVE (NEGATIVE) Ur Phencyclidine Scrn NEGATIVE (NEGATIVE) Ur Amphetamine Screen NEGATIVE (NEGATIVE) U Methamphetamines Scrn NEGATIVE (NEGATIVE) U Benzodiazepines Scrn NEGATIVE (NEGATIVE) U Cocaine Metab Screen NEGATIVE (NEGATIVE) U Marijuana (THC) Screen POSITIVE (NEGATIVE) Ethyl Alcohol mg/dL SARS-CoV-2 RNA (DAVID) NEGATIVE (NEGATIVE) 01/23/20 Range/Units 05:35 WBC (4.0-11.0) K/uL RBC (4.30-5.90) M/uL Hgb (12.0-16.0) g/dL Hct (36.0-46.0) % MCV (80.0-98.0) fL MCH (27.0-32.0) pg MCHC (31.0-37.0) g/dL RDW Std Deviation (28.0-62.0) fl RDW Coeff of Rita (11.0-15.0) % Plt Count (150-400) K/uL MPV (7.40-12.00) fL Neut % (Auto) (48.0-80.0) % Lymph % (Auto) (16.0-40.0) % [place] % (Auto) (0.0-15.0) % Eos % (Auto) (0.0-7.0) % Baso % (Auto) (0.0-1.5) % Neut # (Auto) (1.4-5.7) K/uL Lymph # (Auto) (0.6-2.4) K/uL [place] # (Auto) (0.0-0.8) K/uL Eos # (Auto) (0.0-0.7) K/uL Baso # (Auto) (0.0-0.1) K/uL Nucleated RBC % /100WBC Nucleated RBCs # K/uL INR APTT (18.6-31.3) SEC Sodium 140 (136-145) mmol/L Potassium 3.8 (3.5-5.1) mmol/L Chloride 108 H (98-107) mmol/L Carbon Dioxide 24.8 (21.0-32.0) mmol/L BUN 12 (7.0-18.0) mg/dL Creatinine 0.7 (0.6-1.0) mg/dL Est Cr Clr Drug Dosing 94.01 Estimated GFR (MDRD) > 60.0 ml/min Glucose 83 (74-106) mg/dL Hemoglobin A1c (4.5-6.2) % Calcium 8.8 (8.5-10.1) mg/dL Phosphorus 4.0 (2.6-4.7) mg/dL Magnesium 1.9 (1.8-2.4) mg/dL Total Bilirubin (0.2-1.0) mg/dL AST (15-37) IU/L ALT (14-63) IU/L Alkaline Phosphatase (46-116) U/L Troponin I (0.000-0.056) ng/mL Total Protein (6.4-8.2) g/dL Albumin (3.4-5.0) g/dL Globulin (2.6-4.0) g/dL Albumin/Globulin Ratio (0.9-1.6) Triglycerides 53 (0-200) mg/dL Cholesterol 123 (50-200) mg/dL LDL Cholesterol, Calc 71 (60-180) mg/dL VLDL Cholesterol 10 (5-55) mg/dL HDL Cholesterol 41 (40-60) mg/dL Cholesterol/HDL Ratio 3.0 L (3.3-6.0) TSH 3rd Generation (0.36-3.74) uIU/mL Urine Color Urine Appearance Urine pH (5.0-8.0) Ur Specific [place] (1.001-1.035) Urine Protein (NEGATIVE) mg/dL Urine Glucose (UA) (NEGATIVE) mg/dL Urine Ketones (NEGATIVE) mg/dL Urine Occult Blood (NEGATIVE) Urine Nitrite (NEGATIVE) Urine Bilirubin (NEGATIVE) Urine Urobilinogen (<2.0) EU/dL Ur Leukocyte Esterase (NEGATIVE) Urine RBC (0-2/HPF) Urine WBC (0-5/HPF) Ur Epithelial Cells (NONE-FEW) Urine Bacteria (NEGATIVE) Urine Opiates Screen (NEGATIVE) Ur Oxycodone Screen (NEGATIVE) Urine Methadone Screen (NEGATIVE) Ur Barbiturates Screen (NEGATIVE) Ur Phencyclidine Scrn (NEGATIVE) Ur Amphetamine Screen (NEGATIVE) U Methamphetamines Scrn (NEGATIVE) U Benzodiazepines Scrn (NEGATIVE) U Cocaine Metab Screen (NEGATIVE) U Marijuana (THC) Screen (NEGATIVE) Ethyl Alcohol mg/dL SARS-CoV-2 RNA (DAVID) (NEGATIVE) Result Diagrams: 01/23/20 05:35 01/23/20 05:35 Sepsis Event Note - Evaluation Sepsis Screening Result: No Definite Risk - Focused Exam Vital Signs: Vital Signs Temp Pulse Resp BP Pulse Ox 01/23/20 12:00 98.1 F 64 15 122/74 97 01/23/20 08:00 97.5 F 69 14 130/59 L 98 01/23/20 04:00 98 F 65 15 112/65 97 - Problem List (1) Anxiety disorder SNOMED Code(s): 987852437 ICD Code: F41.9 - ANXIETY DISORDER, UNSPECIFIED Status: Chronic (2) Hypertension SNOMED Code(s): 61965027 ICD Code: I10 - ESSENTIAL (PRIMARY) HYPERTENSION Status: Acute Qualifiers: Hypertension type: essential hypertension Qualified Code(s): I10 - Essential (primary) hypertension (3) Paresthesia of left upper and lower extremity SNOMED Code(s): 56432269, 23252338854511207, 76528688068614613 ICD Code: R20.2 - PARESTHESIA OF SKIN Status: Acute (4) Stroke SNOMED Code(s): 540473339 ICD Code: I63.9 - CEREBRAL INFARCTION, UNSPECIFIED Status: Acute Problem List Initiated/Reviewed/Updated: Yes Orders Last 24hrs: Active Orders 24 hr Category Date Time Status Patient Status [ADT] Routine ADT 01/22/20 22:31 Active Ambulate [RC] ASDIRECTED Care 01/22/20 23:41 Active Antiembolic Devices [RC] PER UNIT ROUTINE Care 01/22/20 23:43 Active Assess Neurological Status [RC] ASDIRECTED Care 01/22/20 23:46 Active Cardiac Monitoring [RC] . DIRECTED Care 01/22/20 21:14 Active NIH Stroke Scale [RC] ASDIRECTED Care 01/22/20 21:14 Active Nursing Bedside Swallow Screen [RC] ASDIRECTED Care 01/22/20 21:14 Active Oxygen Therapy [RC] ASDIRECTED Care 01/22/20 21:14 Active Oxygen Therapy [RC] PRN Care 01/22/20 23:41 Active Pulse Oximetry [RC] PRN Care 01/22/20 23:42 Active RT Aerosol Therapy [RC] ASDIRECTED Care 01/22/20 23:44 Active Stroke Education, General [RC] Click to Edit Care 01/22/20 21:14 Active Telemetry Monitoring [Cardiac Monitoring] [RC] Q8H Care 01/23/20 00:03 Active Up With Assistance [RC] ASDIRECTED Care 01/22/20 21:14 Active VTE/DVT Education [RC] PER UNIT ROUTINE Care 01/22/20 23:41 Active Vital Signs [RC] Q15M Care 01/22/20 21:14 Active Vital Signs [RC] Q4H Care 01/22/20 23:41 Active Heart Healthy Diet [DIET] Diet 01/23/20 Breakfast Active Echo Comp wo Cont [US] Routine Exams 01/22/20 23:44 Ordered Acetaminophen [TylenoL] Med 01/22/20 23:41 Active 650 mg PO Q4H PRN Albuterol/Ipratropium [DuoNeb 3.0-0.5 MG/3 ML] Med 01/22/20 23:41 Active 3 ml NEB Q4HRRT PRN Aspirin Med 01/23/20 09:00 Active 81 mg PO DAILY Labetalol [Normodyne] Med 01/22/20 23:50 Active 10 mg IVPUSH Q4H PRN Levothyroxine Med 01/23/20 09:00 Active 150 mcg PO DAILY Ondansetron [Zofran] Med 01/22/20 23:41 Active 4 mg IVPUSH Q4H PRN PARoxetine [Paxil] Med 01/23/20 09:00 Active 10 mg PO DAILY Patient's Own Medication [Ptom] Med 01/23/20 10:15 Active 1 each PO DAILY PRN Sodium Chloride 0.9% [Normal Saline] Med 01/22/20 21:14 Active 10 ml IV ASDIRECTED PRN Sodium Chloride 0.9% [Saline Flush] Med 01/22/20 21:14 Active 10 ml FLUSH ASDIRECTED PRN Sodium Chloride 0.9% [Saline Flush] Med 01/22/20 21:14 Active 2.5 ml FLUSH ASDIRECTED PRN amLODIPine [Norvasc] Med 01/24/20 09:00 Active 5 mg PO DAILY atorvaSTATin [Lipitor] Med 01/23/20 09:00 Active 20 mg PO BEDTIME Peripheral IV Insertion Adult [OM.PC] Stat Oth 01/22/20 21:14 Ordered Peripheral IV Insertion Adult [OM.PC] Stat Oth 01/22/20 21:14 Ordered Sequential Compression Device [OM.PC] Per Unit Routine Oth 01/22/20 23:42 Ordered Resuscitation Status Routine Resus Stat 01/22/20 23:41 Ordered Medication Orders Acetaminophen (Tylenol) 650 mg PO Q4H PRN PRN Reason: Pain (Mild 1-3)/fever Albuterol/Ipratropium (Duoneb 3.0-0.5 Mg/3 Ml) 3 ml NEB Q4HRRT PRN PRN Reason: Shortness Of Breath/wheezing Amlodipine Besylate (Norvasc) 5 mg PO DAILY [facility] Aspirin (Aspirin) 81 mg PO DAILY [facility] Last Admin: 01/23/20 08:41 Dose: 81 mg Documented by: FIDE Atorvastatin Calcium (Lipitor) 20 mg PO BEDTIME [facility] Last Admin: 01/23/20 08:41 Dose: 20 mg Documented by: FIDE Labetalol HCl (Normodyne) 10 mg IVPUSH Q4H PRN; Protocol PRN Reason: Hypertension Levothyroxine Sodium (Levothyroxine) 150 mcg PO DAILY [facility] Last Admin: 01/23/20 08:40 Dose: 150 mcg Documented by: FIDE Ondansetron HCl (Zofran) 4 mg IVPUSH Q4H PRN PRN Reason: Nausea/Vomiting Paroxetine HCl (Paxil) 10 mg PO DAILY [facility] Last Admin: 01/23/20 08:41 Dose: 10 mg Documented by: FIDE Clonazepam [Klonopin (] 2 Mg) 1 each PO DAILY PRN PRN Reason: ANXIETY Sodium Chloride (Saline Flush) 10 ml FLUSH ASDIRECTED PRN PRN Reason: Keep Vein Open Sodium Chloride (Saline Flush) 2.5 ml FLUSH ASDIRECTED PRN PRN Reason: Keep Vein Open Sodium Chloride (Normal Saline) 10 ml IV ASDIRECTED PRN PRN Reason: IV Use Assessment/Plan Comment:: PT is a 44 y/o F with a family h/o stroke is being treated for new onset of numbness and tingling on her left side of her body since yesterday evening. Pt was thoroughly worked up for stroke, and not found to have any mass or acute intracranial bleed per Head CT scan, Head and Neck CT angio;s. Pt has been stable overnight, states her symptoms have improved. MRI and echo will take place tomorrow. 1. Paresthesia: symptoms have improved , no motor / sensory insult, CN II-XII are intact, all reflex's are intact. NIH score of 1 for paraesthesia in her left extremity. Continue on ASA and Statin therapy. Continue to monitor closely with Q4 neuro checks. MRI and echo will be performed tomorrow. 2. HTN: 5mg amlodipine for essential hypertension. 3. Activity: up ad tyler, DVT ppx Lovenox 40mg SubQ, GI ppx pantoprazole 40mg daily. <Miguel Mcclendon - Last Filed: 01/27/20 23:10> H&P History of Present Illness - General Admit Problem/Dx: Admission Diagnosis/Problem Admission Diagnosis/Problem Stroke-like symptoms Exam - Vital Signs Vital Signs: Last Vital Signs Temp 36.8 C 01/24/20 13:00 Pulse 63 01/24/20 13:00 Resp 16 01/24/20 13:00 BP 101/58 L 01/24/20 13:00 Pulse Ox 97 01/24/20 13:00 - Patient Data Result Diagrams: 01/23/20 05:35 01/23/20 05:35 Assessment/Plan Comment:: I have seen and examined the patient independently and discussed management plan with the resident, I agree with the residents note unless otherwise specified in my note.
[2020-01-23] MEDS ORDERED: Enoxaparin 40 MG/0.4 ML Syringe SUBCUT SCH (14:45)
[2020-01-24] MEDS ORDERED: LORazepam 2 MG/ML SDV IVPUSH ONE (08:00)
[2020-01-24] MEDS ORDERED: CLONAZEPAM 1 MG PO PRN (08:15)
[2020-01-24] MEDS ORDERED: Gadobenate Dimeglumine 529 MG/ML 20 ML SDV IVPUSH STA (08:43)
[2020-01-24] MEDS ORDERED: amLODIPine 5 MG Tab PO SCH (09:00)
[2020-01-24] MEDS ORDERED: Pantoprazole 40 MG Tab.CR PO SCH (09:00)
[2020-01-24] MEDS ORDERED: PARoxetine 20 MG Tab PO SCH (09:00)
[2020-01-24] MEDS: Levothyroxine 150 MCG Tab PO SCH (09:54)
[2020-01-24] MEDS: Aspirin 81 MG Tab.Chew PO SCH (09:54)
--- NOTE | 2020-01-24 10:24 | MR ---
Indication: Numbness and tingling on left side of body. Technique: Noncontrast sagittal 3D T1, axial FLAIR, T2 turbo spine echo, SWI, and diffusion weighted images. Supplemental post contrast T1 weighted axial and coronal sequences are provided after administration of 16 mL Gadavist gadolinium-based IV contrast. Comparison: CT and CTA 01/22/2020 Findings: No evidence of diffusion restriction to suggest acute ischemia. No mass, mass effect or midline shift. No suspicious extra-axial collection or acute intracranial hemorrhage. There is a 7 millimeter nondescript focus of T2 prolongation in the left frontal centrum semiovale without enhancement or diffusion restriction. This is indeterminate but likely represents gliosis from remote inflammatory or ischemic insult. The calvarium is intact. The orbits, paranasal sinuses, mastoid air cells are clear. Expected intracranial vascular flow voids are preserved. Mild left mastoid effusion. Postcontrast images are significantly degraded by motion artifact. Impression : 1. No evidence of acute intracranial abnormality. 2. Postcontrast images are significantly degraded by motion artifact. 3. There is a 7 millimeter nondescript focus of T2 prolongation in the left frontal centrum semiovale without enhancement or diffusion restriction. This is indeterminate but likely represents gliosis from remote inflammatory or ischemic insult. Dictated by Keven Pride MD @ Jan 24 2020 10:11AM Signed by Dr. Keven Pride @ Jan 24 2020 10:23AM
--- NOTE | 2020-01-24 11:33 | PCM.DCSUM1 ---
Discharge Summary - Hospital Course Brief History: This is a 45-year-old female with history significant for recent gastric sleeve placement approximately 1 year ago with an approximate 100 pound weight loss within the last year, history of anxiety disorder, family history of strokes in the past, presents the ER today secondary to acute onset of paresthesias to her left upper and lower extremity that occurred while she was driving. Patient reports her last known well was at 7:30 PM. Patient reports that she pulled over and noticed that her left arm and left leg felt numb. She drove home and her gave her an aspirin and they came here to the ED for further evaluation. Patient reports that she feels like her speech is somewhat abnormal, no double vision, no blurred vision, no weakness to her upper or lower extremities, normal gait, no dizziness or vertigo, no confusion. Patient denies any recent fevers, shakes, chills, nausea, vomiting, diarrhea, dysuria, frequency, urgency, chest pain, shortness of breath. Patient denies any increased anxiety or stressors in her life. Patient denies any abdominal discomfort or chest pain. Diagnosis: Stroke: No - Discharge Data Discharge Date: 01/24/20 Discharge Disposition: Home, Self-Care 01 Condition: Good - Referral to Home Health Primary Care Physician: Nuvia Pierce NP - Discharge Diagnosis/Problem(s) (1) Anxiety disorder SNOMED Code(s): 194816877 ICD Code: F41.9 - ANXIETY DISORDER, UNSPECIFIED Status: Chronic Current Visit: Yes (2) Hypertension SNOMED Code(s): 24659075 ICD Code: I10 - ESSENTIAL (PRIMARY) HYPERTENSION Status: Acute Current Visit: Yes Qualifiers: Hypertension type: essential hypertension Qualified Code(s): I10 - Essential (primary) hypertension (3) Paresthesia of left upper and lower extremity SNOMED Code(s): 69418243, [id number], [id number] ICD Code: R20.2 - PARESTHESIA OF SKIN Status: Acute Current Visit: Yes (4) Stroke SNOMED Code(s): 133367833 ICD Code: I63.9 - CEREBRAL INFARCTION, UNSPECIFIED Status: Acute Current Visit: Yes - Patient Summary/Data Hospital Course: Pt was admitted for newly developed numbness and tingling in her left extremities. All imaging studies ruled out any new masses or intracranial bleeding. MRI and echo performed prior to discharge. MRI indicated small 7 mm area of gliosis versus possible out ischemia changes. Possibly due to old injury, TIA or MS. Pt was stable and ready for discharge. States her symptoms had improved. Advised f/u with Neurology post discharge. Also to follow up with PCP closely. Started on ASA 81 Mg and Atorvastatin for TIA. To follow up with Echo results in few days post discharge. - Patient Instructions Diet: Heart Healthy Diet Activity: As Tolerated Notify Provider of: Fever, Increased Pain, Swelling and Redness Other/Special Instructions: Return to hospital in the event you develop numbness, tingling, any nueorlogial confusion, assymetric changes in function, and weakness or inability to speak, move or sense things. - Discharge Plan *PRESCRIPTION DRUG MONITORING PROGRAM REVIEWED*: Not Applicable *COPY OF PRESCRIPTION DRUG MONITORING REPORT IN PATIENT LOIDA: Not Applicable Prescriptions/Med Rec: Aspirin 81 mg PO DAILY #30 tab.chew atorvaSTATin [Lipitor] 20 mg PO BEDTIME #30 tablet Home Medications: Home Meds Levothyroxine 150 mcg PO DAILY 01/22/20 [History] PARoxetine [Paxil] 40 mg PO DAILY 01/22/20 [History] clonazePAM [Klonopin] 2 mg PO BID PRN 01/22/20 [History] Aspirin 81 mg PO DAILY #30 tab.chew 01/24/20 [Rx] atorvaSTATin [Lipitor] 20 mg PO BEDTIME #30 tablet 01/24/20 [Rx] Oxygen Therapy Mode: Room Air Forms: ED Department Discharge Referrals: Nuvia Pierce NP [Primary Care Provider] - 01/31/20 10:45 am - Discharge Summary/Plan Comment DC Time >30 min.: No - Patient Data Vitals - Most Recent: Last Vital Signs Temp 97.6 F 01/24/20 09:00 Pulse 71 01/24/20 09:00 Resp 16 01/24/20 09:00 BP 107/58 L 01/24/20 09:00 Pulse Ox 94 L 01/24/20 09:00 Weight - Most Recent: 182 lb 14.4 oz I&O - Last 24 hours: Intake & Output 01/23/20 01/24/20 01/24/20 22:59 06:59 14:59 Intake Total 800 750 Output Total 1200 850 Balance -400 -100 Med Orders - Current: Current Medications Acetaminophen (Tylenol) 650 mg PO Q4H PRN PRN Reason: Pain (Mild 1-3)/fever Albuterol/Ipratropium (Duoneb 3.0-0.5 Mg/3 Ml) 3 ml NEB Q4HRRT PRN PRN Reason: Shortness Of Breath/wheezing Aspirin (Aspirin) 81 mg PO DAILY [facility] Last Admin: 01/24/20 09:54 Dose: 81 mg Documented by: Atorvastatin Calcium (Lipitor) 20 mg PO BEDTIME [facility] Last Admin: 01/23/20 20:45 Dose: 20 mg Documented by: Clonazepam (Klonopin) 2 mg PO BEDTIME PRN PRN Reason: ANXIETY Enoxaparin Sodium (Lovenox) 40 mg SUBCUT Q24H [facility] Last Admin: 01/23/20 15:23 Dose: 40 mg Documented by: Levothyroxine Sodium (Levothyroxine) 150 mcg PO DAILY [facility] Last Admin: 01/24/20 09:54 Dose: 150 mcg Documented by: Ondansetron HCl (Zofran) 4 mg IVPUSH Q4H PRN PRN Reason: Nausea/Vomiting Pantoprazole Sodium (Protonix) 40 mg PO DAILY [facility] Last Admin: 01/24/20 09:56 Dose: 40 mg Documented by: Paroxetine HCl (Paxil) 40 mg PO DAILY [facility] Last Admin: 01/24/20 09:55 Dose: 40 mg Documented by: Sodium Chloride (Saline Flush) 10 ml FLUSH ASDIRECTED PRN PRN Reason: Keep Vein Open Sodium Chloride (Saline Flush) 2.5 ml FLUSH ASDIRECTED PRN PRN Reason: Keep Vein Open Sodium Chloride (Normal Saline) 10 ml IV ASDIRECTED PRN PRN Reason: IV Use Discontinued Medications Acetaminophen (Tylenol) 650 mg PO NOW ONE Stop: 01/22/20 22:05 Last Admin: 01/22/20 22:09 Dose: 650 mg Documented by: Amlodipine Besylate (Norvasc) 5 mg PO DAILY [facility] Gadobenate Dimeglumine (Multihance) 20 ml IVPUSH ONETIME STA Stop: 01/24/20 08:44 Last Admin: 01/24/20 09:03 Dose: 16 ml Documented by: Sodium Chloride (Normal Saline) 1,000 mls @ 125 mls/hr IV NOW STA Stop: 01/23/20 05:13 Last Admin: 01/22/20 22:07 Dose: 125 mls/hr Documented by: Iopamidol (Isovue-370 (76%)) 100 ml IVPUSH ONETIME ONE Stop: 01/22/20 21:44 Last Admin: 01/22/20 21:43 Dose: 100 ml Documented by: Labetalol HCl (Normodyne) 10 mg IVPUSH Q4H PRN; Protocol PRN Reason: Hypertension Lorazepam (Ativan) 1 mg IVPUSH ONCALL ONE Stop: 01/24/20 08:01 Last Admin: 01/24/20 10:00 Dose: 1 mg Documented by: Non-Formulary Medication (Clonazepam [Klonopin]) 2 mg PO DAILY [facility] Last Admin: 01/23/20 08:46 Dose: 2 mg Documented by: Paroxetine HCl (Paxil) 10 mg PO DAILY [facility] Last Admin: 01/23/20 08:41 Dose: 10 mg Documented by: Clonazepam [Klonopin (] 2 Mg) 1 each PO DAILY PRN PRN Reason: ANXIETY
--- NOTE | 2020-01-27 12:04 | ECHO ---
EXAM DATE: 01/22/20 PATIENT'S AGE: 45 The ECHO report has been scanned into [employer] and can be seen in this patient's EMR (Electronic Medical Record) under the REPORTS section. The report has also been scanned into PACS. JANNETTE
== END 2020-01-24 15:24 | disposition home or self-care (01) ==
LOC: MW.ED 21:00 → MW.MS 22:31
PROVIDERS: ADMIT Student in an Organized Health Care Education/Training Program; ATTEND Student in an Organized Health Care Education/Training Program
DX: I63.9 Cerebral infarction, unspecified (principal); I10 Essential (primary) hypertension; F41.9 Anxiety disorder, unspecified; Z82.3 Family history of stroke; Z88.8 Allergy status to other drugs, medicaments and biological substances; Z79.899 Other long term (current) drug therapy; Z98.890 Other specified postprocedural states; Z79.82 Long term (current) use of aspirin; Z20.828 Contact with and (suspected) exposure to other viral communicable diseases
CPT/HCPCS: 36415; 70450; 70496; 70498; 70553; 71045; 80048; 80053; 80061; 80305; 80307; 81001; 83036; 83735; 84100; 84443; 84484; 85025; 85610; 85730; 87635; 93306; A9270; A9577; J1650; J2060; J7030; Q9967; 93010; 96360; 96361; 99285-25; 99291; U0002